=== PATIENT | female | born 1975 | race Caucasian/White ===

== ENCOUNTER 2019-10-31 20:03 | Inpatient (IN) | payer BC ==
[~2019-10-31] VITALS: Ht 167.6 cm; Wt 80.9 kg
[2019-10-31] MEDS ORDERED: ZEGERID OTC 201 EACH PO (20:11)
[2019-10-31] MEDS ORDERED: SYNTHROID25 MCG PO (20:12)
[2019-10-31 21:57] LABS: BASOPHILS 0.4 % (0-2); EOSINOPHILS 0.5 % (0-7); HEMATOCRIT 36.4 % (36.0-48.0); HEMOGLOBIN 11.6 g/dL (12-16); IMMATURE GRANULOCYTES 0.4 % (0-5); LYMPHOCYTES 28.4 % (15-50); MCH 27.2 pg (26.0-34.0); MCHC 31.9 g/dL (31.0-37.0); MCV 85.2 fL (80.0-100.0); MEAN PLATELET VOLUME 10.4 fL (7.4-10.4); MONOCYTES 9.4 % (2-11); NEUTROPHILS 60.9 % (40-80); PLATELET COUNT 393 10x3/uL (130-400); RBC 4.27 10x6/uL (4.00-5.40); RDW 14.7 % (11.5-14.5); WBC 7.4 10x3/uL (4.8-10.8)
[2019-10-31 22:06] LABS: APTT 28.5 SECONDS (22.8-39.4); INR 1.1 (0.85-1.17); PROTIME 14.1 SECONDS (11.6-15.0)
[2019-10-31 22:10] LABS: ANION GAP 15.3 mmol/L (8-16); CALCIUM 8.7 mg/dL (8.5-10.1); CARBON DIOXIDE 24.5 mmol/L (21.0-32.0); POTASSIUM - SERUM 3.8 mmol/L (3.5-5.1)
[2019-10-31 22:25] LABS: ALBUMIN 3.8 g/dL (3.4-5.0); BILIRUBIN - TOTAL 0.22 mg/dL (0.2-1.3); PROTEIN - SERUM 7.3 g/dL (6.4-8.2)
--- NOTE | 2019-10-31 23:40 | NUR ---
1/2 NS INFUSING ON ADMISSION.
[2019-10-31 23:50] VITALS: BP 114/69; Ht 167.6 cm; Wt 80.9 kg
[2019-11-01] VITALS: BP 114/69
--- NOTE | 2019-11-01 01:11 | NUR ---
ASSESSED WHEN PT ARRIVED FROM THE ER. PT IS ALERT AND ORIENTED, ABLE TO VERBALIZE NEEDS. VERY NAUSEATED AND C/O PAIN ESPECIALLY TO THE LEFT ANKLE. GIVEN MEDS FOR NAUSEA AND PAIN WHICH HELPED THE PAIN BUT NOT THE NAUSEA. WE ARE USING WET WASHCLOTHS AND TIME TO SEE IF IT WILL EASE UP. WE ALSO PLACED ICE BAGS ON BOTH ANKLES.
--- NOTE | 2019-11-01 02:13 | NUR ---
PT WAS UNABLE TO GET PAST NAUSEA AND MD WAS CALLED. ORDERS FOR COMPAZINE 10 MG IV WERE TAKEN.
--- NOTE | 2019-11-01 03:23 | NUR ---
NAUSEA SEEMS TO BE UNDER CONTROL BUT SHE IS WAITING FOR HER NEXT DOSE OF PAIN MEDS. IT CAN BE GIVEN AT ABOUT 0345.
[2019-11-01 03:55] VITALS: BP 119/65
--- NOTE | 2019-11-01 05:51 | NUR ---
NAUSEA HAS CONTINUED TO BE A PROBLEM WITH PATIENT. MOVEMENT SUCH GETTING ON THE BEDPAN WILL HAVE HER THROWING UP. SHE WILL TALK WITH MD ABOUT IT BEING THE PAIN MED THAT IS CAUSING NAUSEA. AT THIS TIME SHE IS RESTING QUIET
[2019-11-01 05:59] LABS: BASOPHILS 0.2 % (0-2); EOSINOPHILS 0.1 % (0-7); HEMATOCRIT 34.4 % (36.0-48.0); HEMOGLOBIN 10.6 g/dL (12-16); IMMATURE GRANULOCYTES 0.5 % (0-5); LYMPHOCYTES 20.3 % (15-50); MCH 26.6 pg (26.0-34.0); MCHC 30.8 g/dL (31.0-37.0); MCV 86.4 fL (80.0-100.0); MEAN PLATELET VOLUME 10.6 fL (7.4-10.4); NEUTROPHILS 71.9 % (40-80); PLATELET COUNT 389 10x3/uL (130-400); RBC 3.98 10x6/uL (4.00-5.40); RDW 14.8 % (11.5-14.5); WBC 8.7 10x3/uL (4.8-10.8)
[2019-11-01 06:10] LABS: APTT 27.9 SECONDS (22.8-39.4); INR 1.14 (0.85-1.17); PROTIME 14.5 SECONDS (11.6-15.0)
[2019-11-01 06:57] LABS: ALBUMIN 3.5 g/dL (3.4-5.0); ALKALINE PHOSPHATASE 65 U/L (30-120); ALT (SGPT) 20 U/L (10-68); BILIRUBIN - TOTAL 0.28 mg/dL (0.2-1.3); CALC OSMOLALITY 277 mosm/kg (275-300); CALCIUM 8.3 mg/dL (8.5-10.1); CHLORIDE - SERUM 103 mmol/L (98-107); CREATINE KINASE 258 UL (21-215); GLUCOSE 116 mg/dL (74-106); PHOSPHOROUS 3.8 mg/dL (2.5-4.9); POTASSIUM - SERUM 3.8 mmol/L (3.5-5.1); PROTEIN - SERUM 6.7 g/dL (6.4-8.2); SODIUM 138 mmol/L (136-145); UREA NITROGEN 14 mg/dL (7-18)
[2019-11-01 07:00] LABS: CKMB 1.9 U/L (0.0-3.6); CREATININE - SERUM 0.7 mg/dL (0.6-1.3); eGFR NON AFRICAN AMERICAN > 90 mL/min (90-120)
[2019-11-01 07:26] LABS: BILIRUBIN NEGATIVE (NEGATIVE); GLUCOSE NEGATIVE (NEGATIVE); KETONE NEGATIVE (NEGATIVE); NITRITE NEGATIVE (NEGATIVE); UROBILINOGEN NORMAL (NORMAL)
[2019-11-01 12:37] LABS: HCG URINE NEGATIVE (NEGATIVE)
--- NOTE | 2019-11-01 12:59 | NUR ---
PT VERY DROWSY FROM PAIN MEDICATION, DRIFTS OFF TO SLEEP WHEN ANSWERING QUESTIONS. PT REQUESTED TO SIGN CONSENTS. HE IS AT BEDSIDE. REPORTS COMPLICATIONS WITH ANESTHESIA IN THE PAST AND BEDSIDE VISIT WITH ANESTHESIOLOGIST PRIOR TO SURGERY.
[2019-11-01 17:39] VITALS: BP 121/46
[2019-11-01 21:00] VITALS: BP 104/51
[2019-11-02] VITALS (8 sets, daily range): BP systolic 104–141; BP diastolic 59–83
[2019-11-02 05:38] LABS: BASOPHILS 0.4 % (0-2); EOSINOPHILS 1.8 % (0-7); HEMATOCRIT 33.2 % (36.0-48.0); HEMOGLOBIN 10.2 g/dL (12-16); IMMATURE GRANULOCYTES 0.4 % (0-5); LYMPHOCYTES 33.2 % (15-50); MCH 26.8 pg (26.0-34.0); MCHC 30.7 g/dL (31.0-37.0); MCV 87.1 fL (80.0-100.0); MEAN PLATELET VOLUME 10.6 fL (7.4-10.4); MONOCYTES 7.7 % (2-11); NEUTROPHILS 56.5 % (40-80); PLATELET COUNT 339 10x3/uL (130-400); RBC 3.81 10x6/uL (4.00-5.40); RDW 15.2 % (11.5-14.5)
[2019-11-02 05:42] LABS: WBC 5.6 10x3/uL (4.8-10.8)
[2019-11-02 06:00] LABS: ANION GAP 10.3 mmol/L (8-16); CALCIUM 8.4 mg/dL (8.5-10.1); CARBON DIOXIDE 29.3 mmol/L (21.0-32.0); MAGNESIUM - SERUM 1.9 mg/dL (1.8-2.4); PHOSPHOROUS 3.3 mg/dL (2.5-4.9); POTASSIUM - SERUM 3.6 mmol/L (3.5-5.1)
[2019-11-02 06:11] LABS: CREATININE - SERUM 0.9 mg/dL (0.6-1.3)
--- NOTE | 2019-11-02 08:00 | NUR ---
NPO FOR SUGERY, CONT TO MONITOR PAIN, WRAP TO LEFT FOOT AND LOWER LEG, R FOOT WITH SOME BRUISING AND DEFORMITY, CONT TO MONITOR
--- NOTE | 2019-11-02 09:30 | NUR ---
TAKEN TO SURGERY PER BED
--- NOTE | 2019-11-02 11:55 | NUR ---
RETURNED FROM SURGERY PER BED, NO DISTRESS NOTED, IV INFUSING PER LAC, DRESSING TO L LOWER LEG, ELEVATED ON PILLOWS, CONT TO MONITOR
--- NOTE | 2019-11-02 19:00 | NUR ---
PATIENT ALERT AND ORIENTED WHEN ENTERING THE ROOM. PATIENT HAS BILATERAL DRESSINGS TO BOTH LOWER EXTREMETIES. TOES WARM AND PULSE PALPABLE IN THE RIGHT LOWER EDXTREMETY. PATIENT WIGGLES TOES ON COMMAND AND CAPILLARY REFILL LESS THAN THREE SECONDS. PATIENT LEFT LOWER EXTREMETY IN ANDREW WRAP AND SPLINT. PATIENT STATES THAT SHE IS STILL "NUMB". TOES ARE WARM BUT PATIENT IS UNABLE TO WIGGLE TOES ON COMMAND. CAPILLARY REFILL IS LESS THAN THREE SECONDS. PATIENT HAS RM WITH CLEAR YELLOW URINE DRAINING. PATIENT HAS LEFT AC IV THAT IS INFUSING 1/2 NS AT 50. ASSESSMENT COMPLETE AND CHARTED. SPOKE WITH PATIENT ABOUT PAIN CONTROL. PATIENT DENIES FURTHER NEEDS AT THIS TIME. SCD TO THE RIGHT LEG. INCENTIVE SPIROMETER AT BEDSIDE. CALL LIGHT CLOSE. CPOC.
--- NOTE | 2019-11-02 21:03 | NUR ---
REQUESTS PRN PAIN MEDICINE WITH HS MEDICATIONS. SPOKE WITH PATIENT ABOUT OPTIONS. PATIENT CHOSE 5 MG OXYCODONE. ADMINISTERED PER ORDER. PATIENT TOLERATED WELL. CALL LIGHT REMAINS CLOSE. CPOC.
--- NOTE | 2019-11-02 23:15 | NUR ---
ANSWERED PATIENT CALL LIGHT. PATIENT STATES SHE IS BEGINNING TO HAVE MORE PAIN IN HER LEFT ANKLE, STATES "THE FEELING IS COMING BACK." REQUESTS DILAUDID AND VISTARIL. ADMINISTERED MEDICATIONS PER ORDER. PATIENT TOLERATED WELL. CPOC.
[2019-11-03] VITALS: BP 130/62
--- NOTE | 2019-11-03 00:05 | NUR ---
RESTING WITH NO SIGNS OR SYMPTOMS OF DISTRESS. UNLABORED RESPIRATIONS NOTED. CPOC.
--- NOTE | 2019-11-03 01:05 | NUR ---
CHECKING ON PATIENT, PATIENT WAS AWAKE. ASKED HOW PAIN IS, SHE STATES IT IS AT A 6/10 AND REQUESTS PRN OXY 5MG. ADMINISTERED PER ORER. PATIENT TOLERATED WELL. CPOC.
[2019-11-03 04:00] VITALS: BP 128/68
[2019-11-03 04:59] LABS: BASOPHILS 0.1 % (0-2); EOSINOPHILS 0.2 % (0-7); HEMATOCRIT 29.5 % (36.0-48.0); HEMOGLOBIN 9.1 g/dL (12-16); IMMATURE GRANULOCYTES 0.3 % (0-5); LYMPHOCYTES 16.7 % (15-50); MCH 26.5 pg (26.0-34.0); MCHC 30.8 g/dL (31.0-37.0); MCV 85.8 fL (80.0-100.0); MEAN PLATELET VOLUME 10.6 fL (7.4-10.4); MONOCYTES 6.5 % (2-11); NEUTROPHILS 76.2 % (40-80); PLATELET COUNT 330 10x3/uL (130-400); RBC 3.44 10x6/uL (4.00-5.40)
[2019-11-03 05:14] LABS: WBC 11.3 10x3/uL (4.8-10.8)
[2019-11-03 05:22] LABS: CALC OSMOLALITY 272 mosm/kg (275-300); CALCIUM 8.4 mg/dL (8.5-10.1); CARBON DIOXIDE 27.1 mmol/L (21.0-32.0); CHLORIDE - SERUM 104 mmol/L (98-107); CREATININE - SERUM 0.8 mg/dL (0.6-1.3); GLUCOSE 111 mg/dL (74-106); MAGNESIUM - SERUM 1.8 mg/dL (1.8-2.4); PHOSPHOROUS 3.4 mg/dL (2.5-4.9); POTASSIUM - SERUM 3.5 mmol/L (3.5-5.1); SODIUM 137 mmol/L (136-145); UREA NITROGEN 8 mg/dL (7-18); eGFR NON AFRICAN AMERICAN 83 mL/min (90-120)
--- NOTE | 2019-11-03 07:45 | OP ---
PATIENT NAME: WILLIAM HARRIS MEDICAL RECORD: [id number] :77 LOCATION:[id number] ADMISSION DATE:10/31/19 SURGEON: ROBERT FRASER DO DATE OF OPERATION: 11/02/2019 PROCEDURE PERFORMED: Left ankle open reduction internal fixation. PREOPERATIVE DIAGNOSIS: Left distal fibula fracture. POSTOPERATIVE DIAGNOSIS: Left distal fibula fracture. INDICATIONS: Ms. Harris is a 44-year-old female who is on vacation here in [place] from [place]. She fell and fractured her left ankle. She had a displaced distal fibular fracture, nondisplaced posterior aspect, really avulsion fracture of the medial mal and the posterior mal and then avulsion fractures of the right calcaneal anterior process calcaneus as well as the cuboid nondisplaced fracture. Since the left ankle was the fibula fracture, displaced, I informed her we need to fix that. I gave her the option of fixing it here or going home and doing it. She wanted me to do it here and she is aware of the risks including infection, bleeding, damage to nerves or vessels, need for further surgery, continued pain, malunion, nonunion, blood clots, and even . She has signed the consent. SURGEON: Robert Fraser DO DESCRIPTION OF PROCEDURE: The patient was taken to the operative suite after given a block by anesthesia in the preoperative area, placed in supine position, given general anesthetic and sedated and intubated. The left lower extremity was prepped and draped in sterile fashion. Timeout was performed, everyone was in agreement with the correct side, site, patient and procedure. I then began by exsanguinating the left lower extremity, with an Esmarch tourniquet was then inflated to 350 mmHg. It was up for 21 minutes. I then made an incision over the lateral aspect of the ankle with careful dissection down to the fibula, cleaned off the fracture and clamped together with [id number], then put the Paz plate on and pinned into place, it was in good position. I locked it distally first with 4 screws and then in a shaft with 3 screws locking the most proximal hole. I then stressed the ankle joint and the mortise view to ensure there was no medial space widening or any displacement of the medial malleolus and there was not. I then let the tourniquet down, irrigated the site and closed it with 2-0 Vicryl in inverted interrupted fashion. ZipLine was placed on it and she was dressed with Adaptic, 4 x 4s, ABD on the heel and on the incision and did a 2 x 2 dressing on it and a 4 x 30 splint was applied and secured with 6-inch Ron wrap. They also put 6-inch Ron wrapped on the right foot for swelling. She was then awakened and taken to recovery in stable condition. BLOOD LOSS: Minimal. COMPLICATIONS: None. TRANSINT:[id number] Voice Confirmation ID: [id number] DOCUMENT ID: [id number] OPERATIVE REPORT [id number] WILLIAM HARRIS MICHAEL D, DO at 0745 CC: [id number] DICTATION DATE: 11/02/19 1128 SHAGGER: 11/02/192119 ADM IN [facility] [address] [place] [address]
--- NOTE | 2019-11-03 08:01 | NUR ---
ALERT AND ORIENTED. LUNGS CLEAR BILATERALLY. HEART SOUNDS S1 AND S2 HEARD IN ALL BARON. BOWEL SOUNDS ACTIVE X 4. IV TO LEFT AC PATENT WITHOUT REDNESS. DRSG TO BILAT ANKLES C/D/I. DENIES NEEDS. BED LOW. CALL POWELL AND PERSONAL ITEMS IN REACH. WILL CONTINUE TO MONITOR.
[2019-11-03] MEDS ORDERED: oxyCODONE IR PO (08:17)
[2019-11-03] MEDS ORDERED: ELIQUIS2.5 MG PO (08:17)
[2019-11-03] MEDS ORDERED: VISTARIL50 MG PO (08:17)
[2019-11-03 08:39] VITALS: BP 97/56
[2019-11-03 12:29] VITALS: BP 98/40
--- NOTE | 2019-11-03 12:33 | NUR ---
ADMINISTERED PRN DILAUDID FOR PAIN 10/10 IN BOTH ANKLES AND PRN ZOFRAN. RESTING COMFORTABLY IN BED. DENIES ANY NEEDS. BED IN LOWEST POSITION, BED RAILS X2, CALL LIGHT WITHIN REACH. WILL CONTINUE TO MONITOR.
--- NOTE | 2019-11-03 14:31 | MORECARE ---
CASE MANAGEMENT DISCHARGE SUMMARY PATIENT: WILLIAM HOLDER UNIT: [id number] ADM DATE: 10/31/19 AGE: 44 : [birth year] SEX: F ROOM/BED: D.2204 AUTHOR: BRENTDOC PHYSICIAN: REFERRING PHYSICIAN: KENDELL GASTELUM DO DATE OF SERVICE: 11/03/19 Discharge Plan Patient Name: WILLIAM HOLDER Facility: [facility]:[place] : 1975 Planned Disposition: Home or Self Care Anticipated Discharge Date: Discharge Date: Expected LOS: Initial Reviewer: [email or web address] Initial Review Date: 11/01/2019 Generated: 11/03/19 3:31 pm Comments DCP- Discharge Planning Updated by [id number]: Oliva Hay on 11/03/19 1:[address] Patient Name: WILLIAM HOLDER Admission Status: ER Accout number: [id number] Admission Date: 10-31-2019 : 1975 Admission Diagnosis: Attending: KENDELL GASTELUM Current LOS: 3 Anticipated DC Date: Planned Disposition: Home or Self Care Primary Insurance: [employer] OUT OF STATE Discharge Planning Comments: CM met with patient to complete initial dc planning assessment. CM educated patient on the CM role and verbal consent given by patient to complete assessment. 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 Her and son were here visiting and she fell and broke both ankles. At discharge patient plans to return home and feels this is a safe discharge. She will need a wheelchair when she is discharged due to her non-weight bearing status. She is concerned about the long drive and pain control. I have ordered her a wheelchair from [facility]. Patient denied known discharge needs at this time. CM will continue to follow and will assist as needed with dc plans/needs. Director Of Partner Marketing: Oliva Hay DCPIA - Discharge Planning Initial Assessment Updated by [email or web address]: Oliva Hay on 11/03/19 2:24 pm * Is the patient Alert and Oriented? Yes * PCP DR RAMIREZ * Pharmacy [facility] * Preadmission Environment Home with Family * ADLs Independent * Equipment None * List name and contact numbers for known caregivers / representatives who currently or will assist patient after discharge: VA HOLDER (SPOUSE) [phone] * Verbal permission to speak to the caregivers and representatives has been obtained from the patient. N/A * Community resources currently utilized None * Additional services required to return to the preadmission environment? Yes * Can the patient safely return to the preadmission environment? Yes * Has this patient been hospitalized within the prior 30 days at any hospital? No Patient Name: WILLIAM HOLDER Page [phone] at 1431 All edits/amendments must be made on the electronic document DICTATION DATE: 11/03/19 143 COUGAR HUNTER: ONEIL 11/03/19 143 RPT#: [id number] DC DATE: STATUS: ADM IN [facility] [address] [place] [address] END OF REPORT
--- NOTE | 2019-11-03 14:40 | MORECARE ---
CASE MANAGEMENT DISCHARGE SUMMARY PATIENT: WILLIAM HOLDER UNIT: [id number] ADM DATE: 10/31/19 AGE: 44 : [birth year] SEX: F ROOM/BED: D.2204 AUTHOR: BRENTDOC PHYSICIAN: REFERRING PHYSICIAN: KENDELL GASTELUM DO DATE OF SERVICE: 11/03/19 Discharge Plan Patient Name: WILLIAM HOLDER Facility: [facility]:[place] : 1975 Planned Disposition: Home or Self Care Anticipated Discharge Date: Discharge Date: Expected LOS: Initial Reviewer: [email or web address] Initial Review Date: 11/01/2019 Generated: 11/03/19 3:40 pm Comments DCP- Discharge Planning Updated by [email or web address]: Oliva Hay on 11/03/19 1:[address] Patient Name: WILLIAM HOLDER Admission Status: ER Accout number: [id number] Admission Date: 10-31-2019 : 1975 Admission Diagnosis: Attending: KENDELL GASTELUM Current LOS: 3 Anticipated DC Date: Planned Disposition: Home or Self Care Primary Insurance: [employer] OUT OF STATE Discharge Planning Comments: CM met with patient to complete initial dc planning assessment. CM educated patient on the CM role and verbal consent given by patient to complete assessment. 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 Her and son were here visiting and she fell and broke both ankles. At discharge patient plans to return home and feels this is a safe discharge. She will need a wheelchair when she is discharged due to her non-weight bearing status. She is concerned about the long drive and pain control. I have ordered her a wheelchair from [facility]. Patient denied known discharge needs at this time. CM will continue to follow and will assist as needed with dc plans/needs. Calculation Reviewer: Oliva Hay DCPIA - Discharge Planning Initial Assessment Updated by [email or web address]: Oliva Hay on 11/03/19 2:24 pm * Is the patient Alert and Oriented? Yes * PCP DR RAMIREZ * Pharmacy [facility] * Preadmission Environment Home with Family * ADLs Independent * Equipment None * List name and contact numbers for known caregivers / representatives who currently or will assist patient after discharge: VA HOLDER (SPOUSE) [phone] * Verbal permission to speak to the caregivers and representatives has been obtained from the patient. N/A * Community resources currently utilized None * Additional services required to return to the preadmission environment? Yes * Can the patient safely return to the preadmission environment? Yes * Has this patient been hospitalized within the prior 30 days at any hospital? No External Providers External Provider: Baron Ireland Contact Date: Service Request Date: Service Type: Resolution: Reviewer: Comments: Last DP export: 11/03/19 1:31 p Patient Name: WILLIAM HOLDER Page [phone] at 1440 All edits/amendments must be made on the electronic document DICTATION DATE: 11/03/19 1440 FILM EDITOR SUPERVISOR: ONEIL 11/03/19 1440 RPT#: [id number] DC DATE: STATUS: ADM IN [facility] [address] [place] [address] END OF REPORT
--- NOTE | 2019-11-03 15:09 | NUR ---
ADMINISTERED PRN OXY 10 FOR PAIN 10/10 IN BOTH ANKLES. RESTING COMFORTABLY. DENIES ANY OTHER NEEDS. AIDS ASSESSING VITALS AT THIS TIME. WILL CONTINUE TO MONITOR.
[2019-11-03 17:15] VITALS: BP 105/48
--- NOTE | 2019-11-03 17:52 | NUR ---
PRN DILAUDID AND VESTIRIL FOR 10/10 IN BOTH ANKLES. APPEARS TO BE COMFORTABLE ENOUGH THOUGH. FAMILY AT BEDSIDE. DENIES ANY OTHER NEEDS. WILL CONTINUE TO MONITOR.
[2019-11-03 20:00] VITALS: BP 116/54
--- NOTE | 2019-11-03 20:00 | NUR ---
PATIENT REQUESTED THIS NURSE, REPORT RECEIVED. PATIENT COMPLAINING OF PAIN. REQUESTING PRN OXY FOR PAIN RATING 10/10. ADMINISTERED PAIN MEDICATION PER ORDER. STAYED WITH PATIENT SEVERAL MINUTES. ASSESSMENT PERFORMED. PROVIDED SUPPORT TO PATIENT. AT BEDSIDE AT THIS TIME. CALL LIGHT CLOSE. CPOC.
--- NOTE | 2019-11-03 21:55 | NUR ---
PATIENT REQUESTING PRN IV PAIN MEDICATION. PATIENT STATES PAIN IS UNBEARABLE. ADMINISTERED PER ORDER. DENIES FURTHER NEEDS AFTER ADMINISTRATION. CPOC.
--- NOTE | 2019-11-03 23:55 | NUR ---
ANSWERED PATIENT CALL LIGHT. PATIENT REQUESTING PO PAIN MEDICINE. ATTEMPTED NON PHARM ROUTES OF PAIN CONTROL INCLUDING ICE AND ELEVATION. PATIENT STATES NOT EFFECTIVE. ADMINISTERED PAIN MEDICATION PER PO ORDER. PATEINT TOLERATED WELL. DENIES FURTHER NEEDS AFTER ADMINISTRATION. CPOC.
--- NOTE | 2019-11-04 01:26 | NUR ---
ANSWERED PATIENT CALL LIGHT. SHE IS REQUESTING PAIN MEDICINE. INFORMED PATIENT THAT THE NEXT TIME AVAILABLE WAS NOT UNTIL CLOSER TO 2AM. PATIENT VERBALIZES UNDERSTANDING.
--- NOTE | 2019-11-04 01:53 | NUR ---
ANSWERED PATIENT CALL LIGHT. PATIENT ASKING IF PAIN MEDICINE IS AVAILABLE NOW. ADMINISTERED PAIN MEDICINE FOR PAIN RATING OF 8/10. EXPLAINED TO PATIENT THAT PAIN MEDICINE IS MEANT TO MAKE PAIN TOLERABLE. PATIENT STATES PAIN IS NOT TOLERABLE WITHOUT "STAYING AHEAD OF PAIN".
[2019-11-04 04:30] VITALS: BP 97/51
[2019-11-04 06:31] LABS: BASOPHILS 0.5 % (0-2); EOSINOPHILS 1.7 % (0-7); HEMATOCRIT 29.5 % (36.0-48.0); HEMOGLOBIN 9.2 g/dL (12-16); IMMATURE GRANULOCYTES 0.3 % (0-5); LYMPHOCYTES 38.5 % (15-50); MCH 26.8 pg (26.0-34.0); MCHC 31.2 g/dL (31.0-37.0); MEAN PLATELET VOLUME 10.5 fL (7.4-10.4); PLATELET COUNT 373 10x3/uL (130-400); RBC 3.43 10x6/uL (4.00-5.40); RDW 15.3 % (11.5-14.5)
[2019-11-04 06:50] LABS: WBC 6.5 10x3/uL (4.8-10.8)
[2019-11-04 07:07] LABS: CALCIUM 8.3 mg/dL (8.5-10.1); CARBON DIOXIDE 29.5 mmol/L (21.0-32.0); CREATININE - SERUM 0.9 mg/dL (0.6-1.3); MAGNESIUM - SERUM 1.7 mg/dL (1.8-2.4); PHOSPHOROUS 4.2 mg/dL (2.5-4.9); POTASSIUM - SERUM 3.5 mmol/L (3.5-5.1)
[2019-11-04] MEDS ORDERED: DOXYCYCLINE HY100 M2 PO (07:08)
--- NOTE | 2019-11-04 07:35 | NUR ---
ALERT AND ORIENTED. LUNGS CLEAR BILATERALLY. HEART SOUNDS S1 AND S2 HEARD IN ALL BARON. BOWEL SOUNDS ACTIVE X 4. IV TO LEFT AC PATENT WITHOUT REDNESS. DENIES NEEDS. BED LOW. CALL POWELL AND PERSONAL ITEMS IN REACH. WILL CONTINUE TO MONITOR.
[2019-11-04 08:00] VITALS: BP 112/60
--- NOTE | 2019-11-04 11:25 | NUR ---
DISCHARGE EDUCATION PROVIDED BOTH WRITTEN AND VERBAL. VERBALIZED UNDERSTANDING. DENIES FURTHER QUESTIONS. IV REMOVED FROM LEFT AC WITH TIP INTACT. GIVEN DISK OF IMAGES PER REQUEST. WAITING TO DC HOME.
--- NOTE | 2019-11-04 12:16 | MORECARE ---
CASE MANAGEMENT DISCHARGE SUMMARY PATIENT: WILLIAM HOLDER UNIT: [id number] ADM DATE: 10/31/19 AGE: 44 : [birth year] SEX: F ROOM/BED: D.2204 AUTHOR: BRENNA KENNEDY PHYSICIAN: REFERRING PHYSICIAN: KENDELL GASTELUM DO DATE OF SERVICE: 11/04/19 Discharge Plan Patient Name: WILLIAM HOLDER Facility: [facility]:[place] : 1975 Planned Disposition: Home or Self Care Anticipated Discharge Date: Discharge Date: Expected LOS: Initial Reviewer: [email or web address] Initial Review Date: 11/01/2019 Generated: 11/04/19 1:15 pm Comments DCP- Discharge Planning Updated by [email or web address]: Oliva Hay on 11/04/19 11:[address] PATIENT DISCHARGING HOME TODAY, WHEELCHAIR HAS BEEN DELIVERED TO HER HOSPITAL ROOM. I HAVE ALSO GIVEN HER A WORK EXCUSE THAT SHOWED WHEN SHE WAS IN THE HOSPITAL AND THAT SHE IS NOT CLEARD TO REUTRN TO WORK TILL OK BY DR FRASER. HER WILL BE HER HALL CLERK HOME DCP- Discharge Planning Updated by [email or web address]: Oliva Hay on 11/03/19 1:[address] Patient Name: WILLIAM HOLDER Admission Status: ER Accout number: [id number] Admission Date: 10-31-2019 : 1975 Admission Diagnosis: Attending: KENDELL GASTELUM Current LOS: 3 Anticipated DC Date: Planned Disposition: Home or Self Care Primary Insurance: [employer] OUT OF STATE Discharge Planning Comments: CM met with patient to complete initial dc planning assessment. CM educated patient on the CM role and verbal consent given by patient to complete assessment. 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 Her and son were here visiting and she fell and broke both ankles. At discharge patient plans to return home and feels this is a safe discharge. She will need a wheelchair when she is discharged due to her non-weight bearing status. She is concerned about the long drive and pain control. I have ordered her a wheelchair from [facility]. Patient denied known discharge needs at this time. CM will continue to follow and will assist as needed with dc plans/needs. Chemical Equipment Controller: Oliva Hay DCPIA - Discharge Planning Initial Assessment Updated by [email or web address]: Oliva Hay on 11/03/19 2:24 pm * Is the patient Alert and Oriented? Yes * PCP DR RAMIREZ * Pharmacy [facility] * Preadmission Environment Home with Family * ADLs Independent * Equipment None * List name and contact numbers for known caregivers / representatives who currently or will assist patient after discharge: VA HOLDER (SPOUSE) [phone] * Verbal permission to speak to the caregivers and representatives has been obtained from the patient. N/A * Community resources currently utilized None * Additional services required to return to the preadmission environment? Yes * Can the patient safely return to the preadmission environment? Yes * Has this patient been hospitalized within the prior 30 days at any hospital? No Last DP export: 11/03/19 1:40 p Patient Name: WILLIAM HOLDER Page [phone] at 1216 All edits/amendments must be made on the electronic document DICTATION DATE: 11/04/19 1216 FITNESS TEACHER: ONEIL 11/04/19 1216 RPT#: [id number] DC DATE: STATUS: ADM IN [facility] [address] [place] [address] END OF REPORT
--- NOTE | 2019-11-04 12:39 | NUR ---
PATIENT DC HOME WITH WITH ALL BELONGINGS.
--- NOTE | 2019-11-06 13:34 | MORECARE ---
CASE MANAGEMENT DISCHARGE SUMMARY PATIENT: WILLIAM HOLDER UNIT: [id number] ADM DATE: 10/31/19 AGE: 44 : 77 SEX: F ROOM/BED: D.2204 AUTHOR: BRENTDOC PHYSICIAN: REFERRING PHYSICIAN: KENDELL GASTELUM DO DATE OF SERVICE: 11/06/19 Discharge Plan Patient Name: WILLIAM HOLDER Facility: [facility]:[place] : 1975 Planned Disposition: Home or Self Care Anticipated Discharge Date: Discharge Date: 11/04/2019 Expected LOS: Initial Reviewer: [email or web address] Initial Review Date: 11/01/2019 Generated: 11/06/19 2:33 pm Comments DCP- Discharge Planning Updated by [email or web address]: Oliva Hay on 11/04/19 11:[address] PATIENT DISCHARGING HOME TODAY, WHEELCHAIR HAS BEEN DELIVERED TO HER HOSPITAL ROOM. I HAVE ALSO GIVEN HER A WORK EXCUSE THAT SHOWED WHEN SHE WAS IN THE HOSPITAL AND THAT SHE IS NOT CLEARD TO REUTRN TO WORK TILL OK BY DR FRASER. HER WILL BE HER WEBSITE PROJECT MANAGER HOME DCP- Discharge Planning Updated by [email or web address]: Oliva Hay on 11/03/19 1:[address] Patient Name: WILLIAM HOLDER Admission Status: ER Accout number: [id number] Admission Date: 10-31-2019 : 1975 Admission Diagnosis: Attending: KENDELL GASTELUM Current LOS: 3 Anticipated DC Date: Planned Disposition: Home or Self Care Primary Insurance: [employer] OUT OF STATE Discharge Planning Comments: CM met with patient to complete initial dc planning assessment. CM educated patient on the CM role and verbal consent given by patient to complete assessment. 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 Her and son were here visiting and she fell and broke both ankles. At discharge patient plans to return home and feels this is a safe discharge. She will need a wheelchair when she is discharged due to her non-weight bearing status. She is concerned about the long drive and pain control. I have ordered her a wheelchair from [facility]. Patient denied known discharge needs at this time. CM will continue to follow and will assist as needed with dc plans/needs. Environmental Services Project Manager: Oliva Hay DCPIA - Discharge Planning Initial Assessment Updated by [id number]: Oliva Hay on 11/03/19 2:24 pm * Is the patient Alert and Oriented? Yes * PCP DR RAMIREZ * Pharmacy [facility] * Preadmission Environment Home with Family * ADLs Independent * Equipment None * List name and contact numbers for known caregivers / representatives who currently or will assist patient after discharge: VA HOLDER (SPOUSE) [phone] * Verbal permission to speak to the caregivers and representatives has been obtained from the patient. N/A * Community resources currently utilized None * Additional services required to return to the preadmission environment? Yes * Can the patient safely return to the preadmission environment? Yes * Has this patient been hospitalized within the prior 30 days at any hospital? No Last DP export: 11/04/19 11:16 a Patient Name: WILLIAM HOLDER Page [phone] at 1334 All edits/amendments must be made on the electronic document DICTATION DATE: 11/06/19 1333 VEGETABLE SPECKER: ONEIL 11/06/19 1333 RPT#: [id number] DC DATE:11/04/19 STATUS: DIS IN [facility] [address] [place] [address] END OF REPORT
== END 2019-11-04 12:40 | disposition home or self-care (01) | DRG 494 ==
LOC: D.ER 20:03 → D.M3 21:37 → D.MS 21:37
PROVIDERS: Anesthesiology; Family Medicine; Orthopaedic Surgery; ADMIT Family Medicine; ATTEND Family Medicine
PROC: 0QSK04Z Reposition Left Fibula with Internal Fixation Device, Open Approach (ICD-10-PCS; principal; 2019-11-02 09:30)
DX: S82.832A Other fracture of upper and lower end of left fibula, initial encounter for closed fracture (principal); W10.1XXA Fall (on)(from) sidewalk curb, initial encounter; K21.9 Gastro-esophageal reflux disease without esophagitis; E03.9 Hypothyroidism, unspecified; K59.00 Constipation, unspecified; S92.214A Nondisplaced fracture of cuboid bone of right foot, initial encounter for closed fracture; S92.001A Unspecified fracture of right calcaneus, initial encounter for closed fracture; D64.9 Anemia, unspecified